=== PATIENT | female | born 2000 | race Caucasian/White ===

== ENCOUNTER 2022-01-17 11:24 | Outpatient (CLI) | payer MEDICAID, SELFPAY ==
--- NOTE | ~2022-01-17 | US_ITS ---
EXAMINATION: US OB <= 14 weeks fetus DATE: 01/17/2022 12:02 INDICATION: Evaluate viability. Cramping. TECHNIQUE: Real-time transabdominal obstetric ultrasound. FINDINGS: No prior studies The uterus measures 14.9 x 4.3 x 9.9 cm. There is an intrauterine gestational sac, with pole id entified. The crown rump length measures 4.1 cm, which correlates with a estimated gestational age o f 11 weeks 0 days. heart tones are identified measuring 156 BPM. There is a subchorionic hemo rrhage measuring 2 x 2.8 cm. There are the ovaries are normal. No free fluid in the pelvis. IMPRESSION: 1. SL IUP with an EGA of 11 weeks, 0 days (EDC by current ultrasound of 08/08/2022). 2: Subchorionic hemorrhage. Reviewed, dictated and finalized at location A. IMPRESSION: 1. SL IUP with an EGA of 11 weeks, 0 days (EDC by current ultrasound of 08/08/19). 2: Subchorionic hemorrhage.
== END 2022-01-17 11:25 | disposition home or self-care (01) ==
LOC: CHSIMG 11:28
PROVIDERS: PCP Registered Nurse; Visit Provider Registered Nurse
DX: Z34.90 Encounter for supervision of normal pregnancy, unspecified, unspecified trimester (principal)
CPT/HCPCS: 76801